=== PATIENT | female | born 1945 | race Caucasian/White ===

== ENCOUNTER 2017-12-21 11:02 | Outpatient (CLI) | payer MEDICARE, OTHER | END 2017-12-21 11:04 | LOC: LAB 11:02 | PROVIDERS: ATTEND Family Medicine | DX: E03.9 Hypothyroidism, unspecified (principal) | CPT/HCPCS: 36415; 84443 ==

== ENCOUNTER 2019-06-11 10:21 | Outpatient (CLI) | payer MEDICARE, OTHER ==
[2019-06-11 10:37] LABS: BASOPHILS % 0.5 % (0.0-1.5); NEUTROPHILS # 4.5 # k/uL (1.4-7.7)
[2019-06-11 11:28] LABS: eGFR (Non-African) > 60
== END 2019-06-11 10:23 ==
LOC: LAB 10:21
PROVIDERS: ATTEND Family Medicine
DX: E03.9 Hypothyroidism, unspecified (principal)
CPT/HCPCS: 36415; 80053; 84439; 84443; 85025